=== PATIENT | female | born 1950 | race Caucasian/White ===

== ENCOUNTER → 2016-06-20 | Outpatient (CLI) | payer OTHER, MEDICARE ==
--- NOTE | 2016-06-20 10:21 | MA ---
Screening Digital Mammogram Clinical Indications: Routine screening. Technique: Standard cephalocaudal and mediolateral oblique projections were obtained. This examinat ion was processed by the [employer] computer aided detection system. Comparison: May 2015, April 2014 and February 2012. Breast density: A; The breast tissue is mostly fat. Findings: CAD was reviewed. No suspicious findings are identified. Impression: Negative mammogram. BI-RADS 1. Recommendation: Routine screening is recommended in one year, as long as physical examination is philipp ign in this patient with extremely dense breast parenchyma. [facility] will send a result letter to the patient. Negative mammography should not preclude additional workup of a clinically suspicious finding. The patient's information is entered into a reminder system with a target due date for her next mammo gram.
== END ==
LOC: CIMAGING 09:35
DX: Z12.31 Encounter for screening mammogram for malignant neoplasm of breast (principal)
CPT/HCPCS: G0202

== ENCOUNTER → 2018-08-14 | Outpatient (CLI) | payer OTHER, MEDICARE | LOC: CIMAGING 08:05 | PROVIDERS: ATTEND Family Medicine | DX: Z12.31 Encounter for screening mammogram for malignant neoplasm of breast (principal) ==